=== PATIENT | female | born 1955 | race Caucasian/White ===

== ENCOUNTER 2018-05-30 12:30 | Observation (INO) | payer BC ==
[2018-05-30] VITALS (10 sets, daily range): BP systolic 145–163; BP diastolic 57–78; PULSE 72–84; TEMP 98–99.3
[~2018-05-30] VITALS: Ht 162.6 cm; Wt 53.3 kg
--- NOTE | 2018-05-30 13:20 | NUR ---
admitted per WC from admissions, into gown and into bed
--- NOTE | 2018-05-30 13:45 | NUR ---
full assessment completed, see intervention for further info,
--- NOTE | 2018-05-30 14:25 | NUR ---
beginning to c/o pain to right side, medicated with morphine 2mg slow IV
--- NOTE | 2018-05-30 14:58 | NUR ---
resting in bed, Dr Rajput was in to see patient, she states is beginning to have minimal relief of pain
[2018-05-30] MEDS ORDERED: [UNRECOGNIZED DRUG - OTHER] PO (15:03)
[2018-05-30] MEDS ORDERED: [UNRECOGNIZED DRUG - OTHER] PO (15:04)
[2018-05-30] MEDS ORDERED: [UNRECOGNIZED DRUG - REMARK] PO (15:04)
[2018-05-30] MEDS ORDERED: NATOKINASE PO (15:04)
--- NOTE | 2018-05-30 15:11 | NUR ---
Lanre ESCOBEDO in to visit with patient
--- NOTE | 2018-05-30 16:00 | NUR ---
medicated with scheduled toradol and consent signed
--- NOTE | 2018-05-30 17:20 | NUR ---
remains resting in bed watching TV, denies needs
--- NOTE | 2018-05-30 17:47 | NUR ---
to surgery per cart
--- NOTE | 2018-05-30 18:47 | NUR ---
remains in surgery, report given to CHANA Woodson
--- NOTE | 2018-05-30 19:15 | NUR ---
Received patient from PACU. Patient transferred from stretcher to bed with no difficulities. Post-op vitals initiated. Patient is A&O x 4. Denies any pain at this time. Denies any nausea. IVF hanging via gravity from PACU. is at bedside. Denies any concerns or needs at this time. Bed is in a low position with call light in reach.
--- NOTE | 2018-05-30 21:00 | NUR ---
Patient tolerated meal this evening with no c/o nausea. Voiding at this time, urine is a light pink color, does report "little bit of burning" when urinating. Denies wanting to take any medication to help with the burning discomfort at this time.
[2018-05-31 03:40] VITALS: BP 142/60; PULSE 75; TEMP 98.2
--- NOTE | 2018-05-31 05:42 | NUR ---
Patient has rested well through the night. VSS. Denies any pain states it does still continue to "burn a little" when she urinates, however, continues to deny any medication to help with that feeling as she states it isn't bad. Urine remains a pink clear color. Up independently in room. Denies any concerns or needs, call light remains within reach.
--- NOTE | 2018-05-31 06:40 | NUR ---
appears to be dozing, awakens easily, bedside shift report received from CHANA Woodson
[2018-05-31 08:21] VITALS: BP 165/69; PULSE 70; TEMP 98.4
--- NOTE | 2018-05-31 08:41 | NUR ---
awake resting in bed, refuses IV toradol, INT discontinued per pateint's request, denies needs
--- NOTE | 2018-05-31 10:18 | NUR ---
resting in bed asking about discharge, will notify Dr Rajput
--- NOTE | 2018-05-31 10:24 | NUR ---
called and left message on Dr Rajput's cell phone
--- NOTE | 2018-05-31 11:06 | NUR ---
discharge instructions given to patient and her , verbalizes understanding
--- NOTE | 2018-05-31 11:07 | NUR ---
discharged ambulatory
== END 2018-05-31 11:07 | disposition home or self-care (01) ==
LOC: JCC 12:30
PROVIDERS: ADMIT Urology
DX: N20.1 Calculus of ureter (principal); I10 Essential (primary) hypertension; G47.00 Insomnia, unspecified; E11.22 Type 2 diabetes mellitus with diabetic chronic kidney disease; N18.9 Chronic kidney disease, unspecified; Z85.07 Personal history of malignant neoplasm of pancreas; Z90.710 Acquired absence of both cervix and uterus; Z88.3 Allergy status to other anti-infective agents; Z88.1 Allergy status to other antibiotic agents; Z86.73 Personal history of transient ischemic attack (TIA), and cerebral infarction without residual deficits
CPT/HCPCS: C1769; C2617; G0378; J0690; J1100; J1885; J2270; J2405; J2704; J3010; J7030

== ENCOUNTER 2018-07-04 13:53 | Day surgery (SDC) | payer BC ==
[2018-07-04] VITALS (8 sets, daily range): BP systolic 146–175; BP diastolic 78–87; PULSE 81–96; TEMP 97.4–98.1
[~2018-07-04] VITALS: Ht 162.6 cm; Wt 49.6 kg
[~2018-07-04 13:53] MED LIST: NATOKINASE PO; [UNRECOGNIZED DRUG - OTHER] PO; [UNRECOGNIZED DRUG - OTHER] PO; [UNRECOGNIZED DRUG - REMARK] PO
[2018-07-04] MEDS ORDERED: NATURAL POTASS595 MG PO (14:18)
[2018-07-04] MEDS ORDERED: QUESTRAN4 GM/9 GM PO (14:18)
[2018-07-04] MEDS ORDERED: NAC600 MG PO (14:18)
[2018-07-04] MEDS ORDERED: LEVEMIR FLEX100 U/ML SQ (14:19)
[2018-07-04] MEDS ORDERED: ATARAX 10MG10 MG/TAB PO (14:19)
[2018-07-04 15:27] LABS: ALBUMIN 3.9 gm/dL (3.5-5.0); CALCIUM 9.8 mg/dL (8.4-10.2); CREATININE, serum 0.43 mg/dL (0.52-1.25); POTASSIUM 4.1 mmol/L (3.4-5.0)
--- NOTE | 2018-07-04 16:36 | NUR ---
Patient arrives to [facility] via cart, accompanied by [facility] RN Bre. Bedside report received. Patient ambulates from cart to chair in room with standby assist. She is alert and oriented. Monitoring applied - VSS and WNL on room air. Patient denies any pain, nausea, or need. Patient given OK by Dr. Veronica to have small sips of water to moisten her mouth, but otherwise NPO until the AM. Her PEG tube has clean, dry, intact gauze surrounding it. PEG tubing is clear (no bile in tubing) and clamped, secured to abdomen with tape. Patient's spouse is at the bedside. Will continue to monitor.
--- NOTE | 2018-07-04 16:43 | NUR ---
[facility] met with patient's about peg tube formula and supplies. Patient's reported they have a specific type of formula they would like to use and have a company to supply it. Patient and are aware that insurance will not pay for the formula and they are ok with paying for it. Patient's also reported they do not need home health services to instruct on peg tube care because they have a friend who is a nurse and she will help them.
--- NOTE | 2018-07-04 16:45 | NUR ---
Patient resting comfortably in room. Denies any pain, nausea, or need at this time.
--- NOTE | 2018-07-04 17:00 | NUR ---
VSS and WNL on room air. Denies any pain, nausea, or need at this time.
--- NOTE | 2018-07-04 17:15 | NUR ---
VSS and WNL on room air. Resting comfortably in room. Denies any pain, nausea, or need.
--- NOTE | 2018-07-04 17:17 | NUR ---
Dr. Veronica at the bedside.
--- NOTE | 2018-07-04 17:30 | NUR ---
Report given off to CHANA Morris at this time.
--- NOTE | 2018-07-04 17:30 | NUR ---
Pt denies pain or nausea. Pt states "I'm just really tired." Will continue to monitor. in room. Call light within reach.
--- NOTE | 2018-07-04 18:00 | NUR ---
Discharge instructions reviewed. Pt voices understanding. Instructions of PEG tube use and care went over with the patient and . The both voice undertanding. Pt has a daughter that is an RN and a friend that has cared for a peg tube that will help them. IV site discontinued with all parts intact. Pt up to dress. Call light within reach.
--- NOTE | 2018-07-04 18:25 | NUR ---
Pt escorted to private car via wheel chair. Pt accompanied home by her .
== END 2018-07-04 18:25 | disposition home or self-care (01) ==
LOC: SDCO 13:53
PROVIDERS: Internal Medicine Gastroenterology
DX: C25.9 Malignant neoplasm of pancreas, unspecified (principal); C78.7 Secondary malignant neoplasm of liver and intrahepatic bile duct; R11.0 Nausea; R63.0 Anorexia; R63.4 Abnormal weight loss; R17 Unspecified jaundice; E78.00 Pure hypercholesterolemia, unspecified; E11.22 Type 2 diabetes mellitus with diabetic chronic kidney disease; N18.9 Chronic kidney disease, unspecified; I10 Essential (primary) hypertension; Z90.710 Acquired absence of both cervix and uterus; Z88.3 Allergy status to other anti-infective agents; Z83.79 Family history of other diseases of the digestive system; Z86.73 Personal history of transient ischemic attack (TIA), and cerebral infarction without residual deficits
CPT/HCPCS: B4081; C1769; C2625; J0690; J1610; J2704; J3010; J7030; Q9967

== ENCOUNTER 2018-11-14 14:02 | Inpatient (IN) | payer MEDICARE, BC ==
[~2018-11-14] VITALS: Ht 162.6 cm; Wt 40.4 kg
[~2018-11-14 14:02] MED LIST changes: -CENA K20 MEQ/15 PO; -CEPHALEXIN500 M1 PO; -CREON 36000; -SODIUM BICARBO650 MG PO
[2018-11-14 15:12] VITALS: BP 145/66; PULSE 85; TEMP 98
[2018-11-14] MEDS ORDERED: CENA K20 MEQ/15 PO (16:19)
[2018-11-14] MEDS ORDERED: CREON 36000 (16:21)
[2018-11-14 20:35] VITALS: BP 128/60; PULSE 90; TEMP 98.1
[2018-11-14 20:53] VITALS: BP 118/62; PULSE 93; TEMP 97.9
[2018-11-14 21:08] VITALS: BP 127/62; PULSE 94; TEMP 98
[2018-11-14 21:39] VITALS: BP 117/58; PULSE 94; TEMP 98.5
[2018-11-14 22:58] VITALS: BP 140/69; PULSE 83; TEMP 97.9
[2018-11-15] VITALS (15 sets, daily range): BP systolic 113–139; BP diastolic 50–65; PULSE 69–99; TEMP 97.3–98.6
[2018-11-15 00:44] LABS: BASO % 0.2 % (0.0-2.0); EOS # 0.1 (0.0-0.7); EOS % 0.7 % (0-4.0); GRAN # 6.5 (1.4-6.5); GRAN % 77.7 % (42.2-75.2); LYMPH # 1.1 (1.2-3.4); LYMPH % 12.8 % (20.0-51.0); MEAN CELL VOLUME 84 fl (80.0-100.0); MEAN CORPUSCULAR HGB CONC 33 g/dl (33.0-37.0); MEAN PLATELET VOLUME 10.3 fl (7.4-10.4); MONO # 0.7 (0.1-0.6); MONO % 8.1 % (1.7-9.3); PLATELET COUNT 213 K/mm3 (130-400); RED BLOOD COUNT 2.53 M/mm3 (4.10-5.30); REDCELL DISTRIBUTION WIDTH-CV 15.6 % (11.5-14.5)
[2018-11-15 00:47] LABS: HEMATOCRIT 21.2 % (37.0-47.0); HEMOGLOBIN 6.9 g/dl (12.5-16.0); MEAN CORPUSCULAR HEMOGLOBIN 27 pg (27.0-31.0)
[2018-11-15 05:39] LABS: BASO % 0.1 % (0.0-2.0); EOS % 0.6 % (0-4.0); GRAN # 5.1 (1.4-6.5); GRAN % 74.1 % (42.2-75.2); LYMPH # 1.1 (1.2-3.4); LYMPH % 16.2 % (20.0-51.0); MEAN CELL VOLUME 83 fl (80.0-100.0); MEAN CORPUSCULAR HGB CONC 33 g/dl (33.0-37.0); MEAN PLATELET VOLUME 10.7 fl (7.4-10.4); MONO # 0.6 (0.1-0.6); MONO % 8.7 % (1.7-9.3); PLATELET COUNT 173 K/mm3 (130-400); RED BLOOD COUNT 2.83 M/mm3 (4.10-5.30); REDCELL DISTRIBUTION WIDTH-CV 15.1 % (11.5-14.5)
[2018-11-15 05:41] LABS: HEMATOCRIT 23.6 % (37.0-47.0); HEMOGLOBIN 7.7 g/dl (12.5-16.0); MEAN CORPUSCULAR HEMOGLOBIN 27 pg (27.0-31.0)
[2018-11-15 05:45] LABS: PROTHROMBIN TIME 11.4 SECONDS (9.7-12.8)
[2018-11-15 05:48] LABS: ALBUMIN 2.2 gm/dL (3.5-5.0); BILIRUBIN,TOTAL 0.5 mg/dL (0.0-1.0); CALCIUM 8.1 mg/dL (8.4-10.2); CREATININE, serum 1.35 (0.52-1.25); IRON,SERUM 56 ug/dL (35-150); MAGNESIUM 1.9 mg/dL (1.6-2.3); POTASSIUM 3.4 mmol/L (3.4-5.0); TOTAL PROTEIN 4.7 gm/dL (6.4-8.2)
[2018-11-15 05:58] LABS: TOTAL IRON BINDING CAPACITY 225 ug/dL (265-497)
[2018-11-15 06:24] LABS: FERRITIN 138 ng/mL (11-264)
[2018-11-15 17:50] LABS: HEMATOCRIT 25.2 % (37.0-47.0); HEMOGLOBIN 8.3 g/dl (12.5-16.0)
[2018-11-15 21:33] LABS: PERITONEAL -POLYMORPHONUCLEAR 23.4 % (0-25); PERITONEAL FLUID RBC 1000 /mm3 (0-0)
[2018-11-15 23:33] LABS: Fluid Type Peritoneal (())
[2018-11-16 04:40] VITALS: BP 118/49; PULSE 88; TEMP 98.2
[2018-11-16 07:03] LABS: BASO % 0.3 % (0.0-2.0); EOS % 0.6 % (0-4.0); GRAN # 5.7 (1.4-6.5); GRAN % 79.1 % (42.2-75.2); LYMPH # 0.9 (1.2-3.4); LYMPH % 11.8 % (20.0-51.0); MEAN CELL VOLUME 82 fl (80.0-100.0); MEAN CORPUSCULAR HGB CONC 34 g/dl (33.0-37.0); MEAN PLATELET VOLUME 10.1 fl (7.4-10.4); MONO # 0.6 (0.1-0.6); MONO % 7.8 % (1.7-9.3); PLATELET COUNT 176 K/mm3 (130-400); RED BLOOD COUNT 2.96 M/mm3 (4.10-5.30); REDCELL DISTRIBUTION WIDTH-CV 15.4 % (11.5-14.5)
[2018-11-16 07:13] LABS: HEMATOCRIT 24.3 % (37.0-47.0); HEMOGLOBIN 8.2 g/dl (12.5-16.0); MEAN CORPUSCULAR HEMOGLOBIN 28 pg (27.0-31.0)
[2018-11-16 07:15] LABS: CALCIUM 8.2 mg/dL (8.4-10.2); CREATININE, serum 1.25 (0.52-1.25); POTASSIUM 3.6 mmol/L (3.4-5.0)
[2018-11-16 08:03] VITALS: BP 125/62; PULSE 91; TEMP 97.7
[2018-11-16 11:48] VITALS: BP 137/71; PULSE 89; TEMP 98.4
[2018-11-16 11:49] LABS: ARTERIAL BLD GAS TCO2 CT 10.4; ARTERIAL BLOOD GAS HCO3 9.8 meq/L (22-26); ARTERIAL BLOOD GAS PCO2 18.5 mmHg (35-45); ARTERIAL BLOOD GAS PO2 106.4 mmHg (80-100); ARTERIAL BLOOD GAS pH 7.34 (7.35-7.45)
[2018-11-16] MEDS ORDERED: CEPHALEXIN500 M1 PO (13:30)
[2018-11-16] MEDS ORDERED: SODIUM BICARBO650 MG PO ×2 (13:31)
[2018-11-16 17:04] VITALS: BP 148/72; PULSE 92; TEMP 97.5
[2018-11-16 23:42] VITALS: BP 135/66; PULSE 88; TEMP 98.1
[2018-11-17 03:33] VITALS: BP 128/64; PULSE 88; TEMP 98.1
[2018-11-17 06:27] LABS: BASO % 0.2 % (0.0-2.0); EOS # 0.1 (0.0-0.7); GRAN # 6.3 (1.4-6.5); GRAN % 76.7 % (42.2-75.2); LYMPH # 1.1 (1.2-3.4); LYMPH % 13.4 % (20.0-51.0); MEAN CELL VOLUME 82 fl (80.0-100.0); MEAN CORPUSCULAR HGB CONC 33 g/dl (33.0-37.0); MONO # 0.7 (0.1-0.6); PLATELET COUNT 205 K/mm3 (130-400); RED BLOOD COUNT 2.99 M/mm3 (4.10-5.30); REDCELL DISTRIBUTION WIDTH-CV 15.5 % (11.5-14.5)
[2018-11-17 06:40] LABS: ALBUMIN 2.2 gm/dL (3.5-5.0); BILIRUBIN,TOTAL 0.3 mg/dL (0.0-1.0); CALCIUM 7.8 mg/dL (8.4-10.2); CREATININE, serum 1.28 (0.52-1.25); MAGNESIUM 1.9 mg/dL (1.6-2.3); PHOSPHOROUS 2.9 mg/dL (2.5-4.5); POTASSIUM 3.3 mmol/L (3.4-5.0); TOTAL PROTEIN 4.8 gm/dL (6.4-8.2)
[2018-11-17 07:00] LABS: HEMATOCRIT 24.5 % (37.0-47.0); MEAN CORPUSCULAR HEMOGLOBIN 27 pg (27.0-31.0)
[2018-11-17 12:23] VITALS: BP 138/70; PULSE 85; TEMP 97.6
[2018-11-17 15:28] LABS: URINE PROTEIN:CREAT RATIO 1.28 (0.00-0.14)
[2018-11-17 15:32] LABS: PH 5 (5-8); SQUAMOUS EPITHELIAL 0-2 /hpf; URINE APPEARANCE Cloudy; URINE BACTERIA None Seen /hpf; URINE BILIRUBIN Negative (NEGATIVE); URINE BLOOD 2+ (NEGATIVE); URINE COLOR Yellow; URINE GLUCOSE Negative (NEGATIVE); URINE KETONE Trace (NEGATIVE); URINE LEUKOCYTE ESTERASE 3+ (NEGATIVE); URINE NITRATE Positive (NEGATIVE); URINE PROTEIN(semi-quant) 2+ (NEGATIVE); URINE RBC >50 /hpf; URINE UROBILINOGEN Negative (NEGATIVE); URINE WBC >50 /hpf
[2018-11-17 15:43] LABS: COLLECTION METHOD CLEAN CATCH
[2018-11-17 16:49] VITALS: BP 142/70; PULSE 97; TEMP 98.4
[2018-11-17 19:53] VITALS: BP 150/82; PULSE 98; TEMP 98
[2018-11-18 00:09] VITALS: BP 141/83; PULSE 98; TEMP 97.6
[2018-11-18 03:35] VITALS: BP 149/82; PULSE 101; TEMP 97.3
[2018-11-18 06:02] LABS: BASO % 0.3 % (0.0-2.0); EOS # 0.1 (0.0-0.7); EOS % 0.9 % (0-4.0); GRAN # 6.8 (1.4-6.5); GRAN % 79.2 % (42.2-75.2); LYMPH % 11.6 % (20.0-51.0); MEAN CELL VOLUME 83 fl (80.0-100.0); MEAN CORPUSCULAR HGB CONC 34 g/dl (33.0-37.0); MEAN PLATELET VOLUME 9.8 fl (7.4-10.4); MONO # 0.6 (0.1-0.6); MONO % 7.3 % (1.7-9.3); PLATELET COUNT 235 K/mm3 (130-400); RED BLOOD COUNT 2.99 M/mm3 (4.10-5.30); REDCELL DISTRIBUTION WIDTH-CV 15.5 % (11.5-14.5)
[2018-11-18 06:04] LABS: HEMATOCRIT 24.7 % (37.0-47.0); HEMOGLOBIN 8.3 g/dl (12.5-16.0); MEAN CORPUSCULAR HEMOGLOBIN 28 pg (27.0-31.0)
[2018-11-18 06:18] LABS: ALBUMIN 2.2 gm/dL (3.5-5.0); BILIRUBIN,TOTAL 0.2 mg/dL (0.0-1.0); CALCIUM 8.2 mg/dL (8.4-10.2); CREATININE, serum 1.38 (0.52-1.25); MAGNESIUM 1.9 mg/dL (1.6-2.3); PHOSPHOROUS 2.8 mg/dL (2.5-4.5); POTASSIUM 3.6 mmol/L (3.4-5.0); TOTAL PROTEIN 4.9 gm/dL (6.4-8.2); URIC ACID 3.7 mg/dL (2.5-6.2)
[2018-11-18 08:09] VITALS: BP 138/74; PULSE 94; TEMP 98.3
[2018-11-18 12:23] VITALS: BP 142/72; PULSE 86; TEMP 97.3
[2018-11-18 15:50] VITALS: BP 135/63; PULSE 91; TEMP 97.9
[2018-11-18 17:09] LABS: CREATININE, serum 1.38 (0.52-1.25)
[2018-11-18 17:10] LABS: URINE TOTAL VOLUME 300 mL
[2018-11-18 17:24] LABS: URINE CREATININE CLEARANCE 16.1 mL/min (88-128)
[2018-11-18 21:10] VITALS: BP 143/67; PULSE 93; TEMP 97.5
[2018-11-19 05:49] VITALS: BP 139/71; PULSE 92; TEMP 97.7
[2018-11-19 06:14] LABS: BASO % 0.2 % (0.0-2.0); EOS # 0.1 (0.0-0.7); EOS % 1.1 % (0-4.0); GRAN % 75.6 % (42.2-75.2); LYMPH # 1.4 (1.2-3.4); LYMPH % 14.9 % (20.0-51.0); MEAN CELL VOLUME 83 fl (80.0-100.0); MEAN CORPUSCULAR HGB CONC 33 g/dl (33.0-37.0); MONO # 0.7 (0.1-0.6); MONO % 7.4 % (1.7-9.3); PLATELET COUNT 280 K/mm3 (130-400); RED BLOOD COUNT 2.92 M/mm3 (4.10-5.30); REDCELL DISTRIBUTION WIDTH-CV 15.5 % (11.5-14.5)
[2018-11-19 06:22] LABS: HEMATOCRIT 24.2 % (37.0-47.0); MEAN CORPUSCULAR HEMOGLOBIN 27 pg (27.0-31.0)
[2018-11-19 06:25] LABS: CALCIUM 8.3 mg/dL (8.4-10.2); CREATININE, serum 1.31 (0.52-1.25); POTASSIUM 3.5 mmol/L (3.4-5.0)
[2018-11-19 08:00] VITALS: BP 139/65; PULSE 62; TEMP 97.8
[2018-11-19] MEDS ORDERED: SODIUM BICARBO650 MG PO (11:04)
[2018-11-19 12:04] VITALS: BP 135/74; PULSE 96; TEMP 98.4
[2018-11-19] MEDS ORDERED: K-DUR20 MEQ PO (12:15)
== END 2018-11-19 12:00 | disposition home or self-care (01) | DRG 981 ==
LOC: MEDICAL 14:02
PROVIDERS: Internal Medicine Nephrology; Physician Assistant; ADMIT Family Medicine
PROC: 0DP64UZ Removal of Feeding Device from Stomach, Percutaneous Endoscopic Approach (ICD-10-PCS; principal; 2018-11-15)
PROC: 0DH63UZ Insertion of Feeding Device into Stomach, Percutaneous Approach (ICD-10-PCS; 2018-11-15)
PROC: 0W9G3ZZ Drainage of Peritoneal Cavity, Percutaneous Approach (ICD-10-PCS; 2018-11-15)
DX: D62 Acute posthemorrhagic anemia (principal); E43 Unspecified severe protein-calorie malnutrition; C25.9 Malignant neoplasm of pancreas, unspecified; N17.9 Acute kidney failure, unspecified; E87.2 Acidosis; Z68.1 Body mass index [BMI] 19.9 or less, adult; R18.8 Other ascites; E46 Unspecified protein-calorie malnutrition; Z66 Do not resuscitate; R13.10 Dysphagia, unspecified; M62.50 Muscle wasting and atrophy, not elsewhere classified, unspecified site; E87.6 Hypokalemia; I12.9 Hypertensive chronic kidney disease with stage 1 through stage 4 chronic kidney disease, or unspecified chronic kidney disease; N18.9 Chronic kidney disease, unspecified; D63.0 Anemia in neoplastic disease; K74.60 Unspecified cirrhosis of liver; D63.1 Anemia in chronic kidney disease; K86.89 Other specified diseases of pancreas; Z93.1 Gastrostomy status; Z79.4 Long term (current) use of insulin; Z88.1 Allergy status to other antibiotic agents; Z90.710 Acquired absence of both cervix and uterus; Z86.73 Personal history of transient ischemic attack (TIA), and cerebral infarction without residual deficits
CPT/HCPCS: 99232-AI; 99233-AI; 99239; C9113; J2704; J3480; J7030; P9016

== ENCOUNTER → 2018-11-14 | Outpatient (CLI) | payer MEDICARE, BC ==
[~2018-11-14] MED LIST changes: +ATARAX 10MG10 MG/TAB PO; +CENA K20 MEQ/15 PO; +CEPHALEXIN500 M1 PO; +CREON 36000; +LEVEMIR FLEX100 U/ML SQ; +NAC600 MG PO; +NATURAL POTASS595 MG PO; +QUESTRAN4 GM/9 GM PO; +SODIUM BICARBO650 MG PO
[2018-11-14 11:45] LABS: BASO % 0.3 % (0.0-2.0); EOS % 0.4 % (0-4.0); GRAN # 5.9 (1.4-6.5); GRAN % 81.2 % (42.2-75.2); LYMPH # 0.7 (1.2-3.4); MEAN CELL VOLUME 83 fl (80.0-100.0); MEAN CORPUSCULAR HGB CONC 32 g/dl (33.0-37.0); MEAN PLATELET VOLUME 10.2 fl (7.4-10.4); MONO # 0.5 (0.1-0.6); MONO % 7.5 % (1.7-9.3); PLATELET COUNT 235 K/mm3 (130-400); RED BLOOD COUNT 2.05 M/mm3 (4.10-5.30); REDCELL DISTRIBUTION WIDTH-CV 16.3 % (11.5-14.5)
[2018-11-14 11:55] LABS: ALBUMIN 2.6 gm/dL (3.5-5.0); BILIRUBIN,TOTAL 0.2 mg/dL (0.0-1.0); CALCIUM 8.8 mg/dL (8.4-10.2); CREATININE, serum 1.51 (0.52-1.25); TOTAL PROTEIN 5.4 gm/dL (6.4-8.2)
[2018-11-14 11:57] LABS: PROTHROMBIN TIME 11.4 SECONDS (9.7-12.8)
[2018-11-14 11:59] LABS: MEAN CORPUSCULAR HEMOGLOBIN 27 pg (27.0-31.0)
[2018-11-14 12:13] LABS: HEMATOCRIT 17.1 % (37.0-47.0); HEMOGLOBIN 5.5 g/dl (12.5-16.0); POTASSIUM 2.9 mmol/L (3.4-5.0)
== END ==
LOC: COL.LAB 11:04
PROVIDERS: Physician Assistant
DX: C25.9 Malignant neoplasm of pancreas, unspecified (principal); R17 Unspecified jaundice; R63.4 Abnormal weight loss